=== PATIENT | male | born 1950 | race African-American/Black ===

== ENCOUNTER 2020-07-29 10:55 | Observation (INO) ==
[~2020-07-29 10:55] MED LIST: ASPIRIN 325 MG TABLET PO ONE; DIAZEPAM 5 MG TABLET PO ONE; MAGNESIUM SULF RIDER 2 GM/50 ML PREMIX IV PRN; POTASSIUM CHLORIDE RIDER 10 MEQ/100 ML PREMIX IV PRN; diphenhydrAMINE CAP 50 MG CAPSULE PO ONE
[2020-07-29] MEDS ORDERED: ASPIRIN 325 MG TABLET ONE (12:26)
[2020-07-29] MEDS ORDERED: diphenhydrAMINE CAP 50 MG CAPSULE ONE (12:26)
[2020-07-29] MEDS ORDERED: DIAZEPAM 5 MG TABLET ONE (12:26)
[2020-07-29] MEDS: SODIUM CHLORIDE 0.9% 1,000 ML IV SCH ×2 (12:29→18:10)
[2020-07-29] MEDS ORDERED: ACETAMINOPHEN 325 MG TABLET PO PRN (13:20)
[2020-07-29] MEDS ORDERED: ONDANSETRON 4 MG/2 ML VIAL IV PRN (13:20)
[2020-07-30 04:07] LABS: Basophils % 0.3 % (0.0-0.8); Eosinophils # 0.3 10*3/uL (0.0-0.87); Eosinophils % 4.3 % (0.00-10.9); Hematocrit 45.3 VOL% (42.0-52.0); Hemoglobin 15.3 GM/DL (14.0-18.0); Lymphocytes # 3.3 10*3/uL (1.4-4.0); Mean Corpuscular HGB Conc 33.8 GM/DL (32-36); Mean Corpuscular Volume 81.9 FL (87-102); Monocytes % 7.2 % (1.7-12.7); Neutrophils % 39.2 % (38.7-73.9); Platelet Count 239 T/CUMM (130-400); Red Blood Count 5.53 MC/CUMM (3.8-5.5); Red Cell Distribution Width 15.1 % (9.3-17.3); White Blood Count 6.8 T/CUMM (4-12)
[2020-07-30] MEDS: SODIUM CHLORIDE 0.9% 1,000 ML IV SCH ×2 (04:20→16:04)
[2020-07-30 04:31] LABS: Calcium 8.7 MG/DL (8.5-10.1); Osmolality,Calculated 273.7 MOS/KG (273-304); Potassium 3.1 MMOL/L (3.5-5.1); Risk Ratio 4.08; VLDL Cholesterol 25.2 MG/DL
[2020-07-30] MEDS ORDERED: VALSARTAN/HCTZ 160-12.5 MG TABLET PO SCH (09:00)
[2020-07-30] MEDS ORDERED: ceFAZolin 1,000 MG VIAL IRRIG ONE (09:36)
[2020-07-30] MEDS ORDERED: diphenhydrAMINE CAP 25 MG CAPSULE PO ONE (09:36)
[2020-07-30] MEDS ORDERED: DIAZEPAM 5 MG TABLET PO ONE (09:36)
[2020-07-30] MEDS: ASPIRIN EC 81 MG TABLET PO SCH (10:55)
[2020-07-30] MEDS ORDERED: LIDOCAINE 1% 20 ML VIAL ONE (11:22)
[2020-07-30] MEDS ORDERED: TISSUE ADHESIVE 1 EACH APPLICATOR TOP ONE (11:33)
[2020-07-30] MEDS ORDERED: fentaNYL 100 MCG/2 ML VIAL ONE (11:34)
[2020-07-30] MEDS ORDERED: MIDAZOLAM 2 MG/2 ML VIAL ONE ×2 (11:34→11:48)
[2020-07-30] MEDS ORDERED: PROMETHAZINE 25 MG/1 ML VIAL ONE (11:52)
[2020-07-30] MEDS ORDERED: DEXTROSE 50% 25 GM/50 ML VIAL IV PRN ×2 (13:16→14:37)
[2020-07-30] MEDS ORDERED: GLUCAGON 1 MG VIAL IM PRN (13:16)
[2020-07-30] MEDS: ROSUVASTATIN 20 MG TABLET PO SCH (15:00)
[2020-07-30] MEDS: MAGNESIUM OXIDE 400 MG TABLET PO SCH (15:02)
[2020-07-30] MEDS: OMEGA 3 ACID ETHYL ESTERS 1 GM CAPSULE PO SCH (15:03)
[2020-07-30] MEDS: hydroCHLOROthiazide 12.5 MG CAPSULE PO SCH (15:03)
[2020-07-30] MEDS: POTASSIUM CHLORIDE 20 MEQ TABLET PO SCH ×2 (15:04→20:24)
[2020-07-30] MEDS: PANTOPRAZOLE 40 MG TABLET PO SCH (15:05)
[2020-07-30] MEDS: VALSARTAN 160 MG TABLET PO SCH (16:08)
[2020-07-30] MEDS: FLUTICASONE 50 MCG NASAL SPRAY 16 GM BOTTLE BOTH NARES SCH ×2 (16:09→20:27)
[2020-07-30] MEDS: INSULIN REGULAR 100 UNIT/ML SUBCUT SCH ×2 (16:49→20:26)
[2020-07-30] MEDS ORDERED: ALFUZOSIN 10 MG TABLET PO SCH (21:00)
[2020-07-30] MEDS ORDERED: CETIRIZINE 10 MG TABLET PO SCH (21:00)
[2020-07-31 05:11] LABS: Basophils % 0.3 % (0.0-0.8); Eosinophils # 0.2 10*3/uL (0.0-0.87); Hematocrit 47.2 VOL% (42.0-52.0); Hemoglobin 15.7 GM/DL (14.0-18.0); Immature Granulocytes % 0.3 %; Immature Granulocytes Absolute 0.02 #; Lymphocytes # 2.1 10*3/uL (1.4-4.0); Lymphocytes % 32.6 % (21.2-54.2); Mean Corpuscular HGB Conc 33.3 GM/DL (32-36); Mean Corpuscular Volume 82.1 FL (87-102); Mean Platelet Volume 10.1 FL (9.6-12.0); Neutrophils % 53.8 % (38.7-73.9); Platelet Count 218 T/CUMM (130-400); Red Blood Count 5.75 MC/CUMM (3.8-5.5); Red Cell Distribution Width 15.2 % (9.3-17.3); White Blood Count 6.4 T/CUMM (4-12)
[2020-07-31 05:50] LABS: Calcium 8.5 MG/DL (8.5-10.1); Osmolality,Calculated 275.8 MOS/KG (273-304); Potassium 3.3 MMOL/L (3.5-5.1)
[2020-07-31] MEDS: INSULIN REGULAR 100 UNIT/ML SUBCUT SCH (08:45)
[2020-07-31] MEDS: hydroCHLOROthiazide 12.5 MG CAPSULE PO SCH (10:08)
[2020-07-31] MEDS: OMEGA 3 ACID ETHYL ESTERS 1 GM CAPSULE PO SCH (10:08)
[2020-07-31] MEDS: ASPIRIN EC 81 MG TABLET PO SCH (10:09)
[2020-07-31] MEDS: MAGNESIUM OXIDE 400 MG TABLET PO SCH (10:09)
[2020-07-31] MEDS: PANTOPRAZOLE 40 MG TABLET PO SCH (10:09)
[2020-07-31] MEDS: POTASSIUM CHLORIDE 20 MEQ TABLET PO SCH (10:10)
[2020-07-31] MEDS: ROSUVASTATIN 20 MG TABLET PO SCH (10:10)
[2020-07-31] MEDS: VALSARTAN 160 MG TABLET PO SCH (10:11)
[2020-07-31] MEDS: FLUTICASONE 50 MCG NASAL SPRAY 16 GM BOTTLE BOTH NARES SCH (10:15)
[2020-07-31] MEDS: SODIUM CHLORIDE 0.9% 1,000 ML IV SCH (12:13)
[2020-07-31 12:37] VITALS: BP 185/103
== END 2020-07-31 14:45 | disposition home or self-care (01) ==
LOC: N.TELEN 10:55 → N.CL 10:55 → N.TELEN 17:27
PROVIDERS: ADMIT Internal Medicine Cardiovascular Disease; ATTEND Internal Medicine Cardiovascular Disease